=== PATIENT | male | born 1995 | race Two or more races ===

== ENCOUNTER 2025-01-29 20:36 | Emergency (ER) | payer OTHER ==
[~2025-01-29] VITALS: Ht 167.6 cm; Wt 83.9 kg
[2025-01-29 21:18] VITALS: BP 110/67; O2SAT 100
[2025-01-29] MEDS ORDERED: CLINDAMYCIN PHOSPHATE 150 MG/ML (600mg) IV ONE (22:45)
[2025-01-29] MEDS ORDERED: CLINDAMYCIN PHOSPHATE 150 MG/ML (300mg) ONE (23:30)
== END 2025-01-30 00:30 | disposition home or self-care (01) ==
LOC: ER 20:36
DX: K04.7 Periapical abscess without sinus (principal)